=== PATIENT | female | born 1940 | race Caucasian/White ===

== ENCOUNTER 2016-12-25 15:01 | Outpatient (CLI) | payer MEDICARE, MEDICAID ==
--- NOTE | 2016-12-25 16:11 | Diagnostic Imaging Report ---
Indication: ASTHMA, cough Technique: Two views of the chest Comparison: none Findings: The lungs and pleural spaces are clear. Heart size is normal. Aorta is elongated and calcified. Bones are intact, osteoporotic Impression: No acute process
== END 2016-12-25 17:01 | disposition home or self-care (01) ==
LOC: RAD 15:01
DX: J45.909 Unspecified asthma, uncomplicated (principal); R05 Cough; M81.0 Age-related osteoporosis without current pathological fracture
CPT/HCPCS: 71020